=== PATIENT | female | born 1990 | race Caucasian/White ===

== ENCOUNTER 2017-11-08 07:23 | Outpatient (CLI) ==
--- NOTE | 2017-11-08 10:14 | US ---
EXAM: Transvaginal pelvic ultrasound. History: Vaginal bleeding. Technique: Multiple sonographic images through the pelvis were obtained. Color duplex Doppler was u sed to interrogate vascular flow. Findings: The uterus measures 8.5 cm x 4.7 cm x 4.2 cm. Endometrium measures 1.2 cm in thickness. Multiple Na bothian cysts are seen within the cervix with the largest measuring 0.6 cm. No fluid in the cul-de-sac. The ovaries were not seen well transvaginally. Transabdominally the ovaries were identified and appea red normal in size and demonstrated blood flow. Impression: Multiple cervical Nabothian cysts. The endometrium is mildly thickened and could be due to phase in cycle versus hyperplasia or polyp. Follow-up recommended.
== END 2017-11-08 07:24 | disposition home or self-care (01) ==
LOC: RAD 07:23
PROVIDERS: ATTEND Nurse Practitioner Family
DX: N92.1 Excessive and frequent menstruation with irregular cycle (principal)
CPT/HCPCS: 36415; 80053; 82672; 83001; 83002; 84439; 84443; 84481; 85025

== ENCOUNTER 2018-01-11 16:08 | Outpatient (CLI) | END 2018-01-11 16:09 | disposition home or self-care (01) | LOC: FCC-LAB 16:08 | PROVIDERS: ATTEND Nurse Practitioner Family | DX: E03.9 Hypothyroidism, unspecified (principal); E66.9 Obesity, unspecified | CPT/HCPCS: 36415; 80053; 84439; 84443; 85025 ==

== ENCOUNTER 2018-06-16 21:31 | Emergency (ER) | payer OTHER ==
[2018-06-16 21:35] VITALS: BP 138/86; TEMP 98.3; BMI 46.2
--- NOTE | 2018-06-16 22:03 | ED.PDOC ---
General ED Provider: Dr. SHELBY SWEENEY-ER Chief Complaint: Headache Stated Complaint: we had sex and then her head starting hurting and she couldnt talk Time Seen by Physician: 21:35 Mode of Arrival: Walk-In Information Source: Patient, Family Exam Limitations: No limitations Primary Care Provider: WIL STEPHENSON Nursing and Triage Documentation Reviewed and Agree: Yes Does patient meet sepsis criteria?: No System Inflammatory Response Syndrome: Not Applicable Sepsis Protocol: For patient's 13 years and over: Temp is 96.8 and below OR 101 and greater Pulse >90 BPM Resp >20/minute Acutely Altered Mental Status Are patient's symptoms suggestive of a new infection, such as: -Pneumonia -Skin, Soft Tissue -Endocarditis -UTI -Bone, Joint Infection -Implantable Device -Acute Abdominal Infection -Wound Infection -Meningitis -Blood Stream Catheter Infection -Unknown Neurological Complaint Exam - Headache Complaint/Exam Onset: Sudden Duration: one hour Symptoms Are: Still present Timing: Constant Worst Headache Ever: No Initial Severity: Mild Current Severity: Mild Location: Diffuse Character: Reports: Dull Aggravating: Reports: None Alleviating: Reports: None Associated Signs and Symptoms: Denies: Dizziness, Seizure, Nausea, Vomiting, Sinus pressure, Fever, Neck pain, Neck stiffness, Decreased LOC, Visual changes Related Surgical History: Reports: None Meningitis Risk Factors: Reports: None SDH Risk Factors: Reports: None Temporal Arteritis Risk Factors: Reports: Female, Normal Head CT Within Last 12 Months: No Fundoscopic Exam: Present: Normal Findings Papilledema Present: No Temporal Artery Tenderness: Present: None Sinus Tenderness: Present: None TMJ Tenderness: Present: None Glascow Coma Scale (see protocol): 15 Meningeal Signs Positive: No Pain on Passive Flexion-Positive Kernig's: No ROM Limited In: No Limitiations Focal Weakness: Present: None Focal Sensory Loss: Present: None Gait: Normal Nystagmus Present: No Gag Reflex Present: Yes [id number]: Normal Findings Romberg Test Positive: No Babinski Sign: Negative Right, Negative Left Heel to Toe Normal: Yes Differential Diagnoses: CVA, TIA, Migraine (complex migraine), Other Review of Systems - Review Of Systems Constitutional: Reports: No symptoms Eyes: Reports: No symptoms Ears, Nose, Mouth, Throat: Reports: No symptoms Respiratory: Reports: No symptoms Cardiac: Reports: No symptoms GI: Reports: No symptoms : Reports: No symptoms Musculoskeletal: Reports: No symptoms Skin: Reports: No symptoms Neurological: Reports: Headache, Other (aphasia) Endocrine: Reports: No symptoms Hematologic/Lymphatic: Reports: No symptoms All Other Systems: Reviewed and Negative Past Medical History - Past Medical History Previously Healthy: No Endocrine: Reports: Unknown Cardiovascular: Reports: Unknown Respiratory: Reports: Unknown Hematological: Reports: Unknown Gastrointestinal: Reports: Unknown Genitourinary: Reports: Unknown Neuro/Psych: Reports: Unknown Musculoskeletal: Reports: Unknown Cancer: Reports: Unknown Last Menstrual Period: 2 weeks - Surgical History General Surgical History: Reports: Unknown - Family History Family History: Reports: Unknown - Social History Smoking Status: Never smoker Hx Substance Use: No Alcohol Screening: Occasionally Lives: With family - Immunizations Tetanus Shot up to Date: Yes Physical Exam - Physical Exam Appearance: Well-appearing, No pain distress, Well-nourished Eyes: YAKELIN, EOMI, Conjunctiva clear ENT: Ears normal, Nose normal, Oropharynx normal Neck: Supple Respiratory: Airway patent, Breath sounds clear, Breath sounds equal, Respirations nonlabored Cardiovascular: RRR, Pulses normal, No rub, No murmur GI/: Soft, Nontender, No masses, Bowel sounds normal, No Organomegaly Musculoskeletal: Normal strength, ROM intact, No edema, No calf tenderness Skin: Warm, Dry, Normal color Neurological: Sensation intact, Motor intact, Reflexes intact, Cranial nerves intact, Alert, Oriented Psychiatric: Affect appropriate, Mood appropriate Interpretation - EKG Interpretation Time of EKG #1: 22:04 Rate: Normal Rhythm: Sinus Ectopy: None Dalbo: NL ST Segment: Normal Interpretation: nsr Re-Evaluation - Re-Evaluation Time of Re-Evaluation: 22:54 Status: Improved (now speaking in sentences--angel improved) Vital Signs Stable: Yes Pain Level: 2 Appearance: NAD Lungs: Clear Skin: Warm and Dry Neuro: Alert and Oriented X3 CV: RRR Critical Care Note - Critical Care Note Total Time (mins): 0 Course - Course Hematology/Chemistry: 06/16/18 21:55 06/16/18 21:55 Orders, Labs, Meds: Lab Review 06/16/18 06/16/18 06/16/18 21:50 21:50 21:50 WBC RBC Hgb Hct MCV MCH MCHC RDW Coeff of Eliseo Plt Count Immature Gran % (Auto) Neut % (Auto) Lymph % (Auto) Pepin % (Auto) Eos % (Auto) Baso % (Auto) Immature Gran # (Auto) Neut # (Auto) Lymph # (Auto) Pep[place] # (Auto) Eos # (Auto) Baso # (Auto) Sodium Potassium Chloride Carbon Dioxide Anion Gap BUN Creatinine Estimated GFR (MDRD) BUN/Creatinine Ratio Glucose Calcium Total Bilirubin AST ALT Alkaline Phosphatase Total Protein Albumin Globulin Albumin/Globulin Ratio Free T4 Urine Color Yellow Urine Clarity Cloudy Urine pH 6.0 Ur Specific [place] >=1.030 Urine Protein Trace Urine Glucose (UA) Negative Urine Ketones Negative Urine Blood Negative Urine Nitrite Negative Urine Bilirubin 1+ Urine Urobilinogen 0.2 Ur Leukocyte Esterase Negative Urine Microscopic WBC 0-2 Ur Squamous Epith Cells 0-2 Urine Bacteria Trace Hyaline Casts 0-2 Urine Mucus 1+ Urine Sperm Trace Urine Test Negative Urine Opiates Screen Negative Ur Oxycodone Screen Negative Urine Methadone Screen Negative Ur Propoxyphene Screen Negative Ur Barbiturates Screen Negative U Tricyclic Antidepress Negative Ur Phencyclidine Scrn Negative Ur Amphetamine Screen Negative U Methamphetamines Scrn Negative U Benzodiazepines Scrn Negative Urine Cocaine Screen Negative U Cannabinoids Screen Negative Plasma/Serum Alcohol 06/16/18 06/16/18 06/16/18 21:55 21:55 21:55 WBC 11.64 H RBC 4.96 Hgb 14.2 Hct 42.6 MCV 85.9 MCH 28.6 MCHC 33.3 RDW Coeff of Eliseo 12.8 Plt Count 361 Immature Gran % (Auto) 0.3 Neut % (Auto) 74.6 Lymph % (Auto) 21.6 Pepin % (Auto) 2.8 Eos % (Auto) 0.3 Baso % (Auto) 0.4 Immature Gran # (Auto) 0.0 Neut # (Auto) 8.7 H Lymph # (Auto) 2.5 Pepin # (Auto) 0.3 L Eos # (Auto) 0.0 Baso # (Auto) 0.1 Sodium 143.7 Potassium 4.01 Chloride 108.0 H Carbon Dioxide 23.0 Anion Gap 16.71 BUN 8.1 Creatinine 1.00 Estimated GFR (MDRD) 66.00 BUN/Creatinine Ratio 8.10 Glucose 101.8 Calcium 9.29 Total Bilirubin 0.44 AST 23.7 ALT 22.8 Alkaline Phosphatase 84.5 Total Protein 7.96 Albumin 4.57 Globulin 3.39 Albumin/Globulin Ratio 1.34 Free T4 1.24 Urine Color Urine Clarity Urine pH Ur Specific [place] Urine Protein Urine Glucose (UA) Urine Ketones Urine Blood Urine Nitrite Urine Bilirubin Urine Urobilinogen Ur Leukocyte Esterase Urine Microscopic WBC Ur Squamous Epith Cells Urine Bacteria Hyaline Casts Urine Mucus Urine Sperm Urine Test Urine Opiates Screen Ur Oxycodone Screen Urine Methadone Screen Ur Propoxyphene Screen Ur Barbiturates Screen U Tricyclic Antidepress Ur Phencyclidine Scrn Ur Amphetamine Screen U Methamphetamines Scrn U Benzodiazepines Scrn Urine Cocaine Screen U Cannabinoids Screen Plasma/Serum Alcohol < 10.0 Orders Category Date Time Status EKG-(ED ONLY) Stat CARDIO 06/16/18 21:48 Completed ACCUCHECK (ED) [ED ACCUCHECK ASSESSMENT] .ONCE EMERGENCY 06/16/18 22:11 Active ED CONSULTING NURSE APPLIED .ONCE EMERGENCY 06/16/18 21:46 Active IV [ED IV/MEDIPORT/POWERPORT] .ONCE EMERGENCY 06/16/18 22:14 Active OXYGEN [ED APPLY O2] .ONCE EMERGENCY 06/16/18 22:11 Active BLOOD ALCOHOL Stat LAB 06/16/18 21:55 Completed CBC W/ AUTO DIFF Stat LAB 06/16/18 21:55 Completed CMP [COMPREHENSIVE METABOLIC PANEL] Stat LAB 06/16/18 21:55 Completed DRUG SCREEN, URINE, RAPID Stat LAB 06/16/18 21:50 Completed FREE T4 (FREE THYROXINE) Stat LAB 06/16/18 21:55 Completed TSH [THYROID STIMULATING HORMONE] Stat LAB 06/16/18 21:55 Received UA [URINALYSIS C & S IF INDICATED] Stat LAB 06/16/18 21:50 Completed URINE Stat LAB 06/16/18 21:50 Completed 0.9 % Sodium Chloride [Saline Flush] MEDS 06/16/18 22:14 Ordered 1 syr IVF PRN PRN Ketorolac Tromethamine [Toradol] MEDS 06/16/18 22:31 Discontinued 30 mg IVP ONCE STA Ondansetron HCl/Pf [Zofran 4 mg/2 ml] MEDS 06/16/18 22:31 Discontinued 4 mg IVP ONCE STA CT HEAD W/O CONTRAST Stat RADS 06/16/18 21:43 Completed Medications Generic Name Dose Route Start Last Admin Trade Name Freq PRN Reason Stop Dose Admin Sodium Chloride 1 syr 06/16/18 22:14 06/16/18 22:36 Saline Flush IVF 1 syr PRN PRN Administration To flush IV Discontinued Medications Generic Name Dose Route Start Last Admin Trade Name Sandy PRN Reason Stop Dose Admin Ketorolac Tromethamine 30 mg 06/16/18 22:31 06/16/18 22:35 Toradol IVP 06/16/18 22:32 30 mg ONCE STA Administration Ondansetron HCl 4 mg 06/16/18 22:31 06/16/18 22:35 Zofran 4 Mg/2 Ml IVP 06/16/18 22:32 4 mg ONCE STA Administration Vital Signs: Temp Pulse Resp BP Pulse Ox 06/16/18 22:16 81 22 99 06/16/18 21:31 98.3 F 89 20 138/86 98 Departure - Departure Time of Disposition: 22:55 Disposition: TSF SHORT-TRM HOSP Discharge Problem: Headache Condition: Good Pt referred to PMD for follow-up: Yes IPMP verified?: No Allergies/Adverse Reactions: Allergies cefaclor [From Ceclor] Allergy (Severe, Unverified 07/13/17 13:36) Patient unsure Patient to notify drugstore Home Medications: Ambulatory Orders Metformin HCl 1,000 mg PO BID 06/16/18 Transfer Form Completed: Yes Disposition Discussed With: Patient, Family
[2018-06-16 22:04] LABS: URINE PREGNANCY TEST NEGATIVE (NEGATIVE)
[2018-06-16] MEDS ORDERED: ZOFRAN 4 MG/2 ML IVP STA (22:31)
[2018-06-16] MEDS ORDERED: TORADOL IVP STA (22:31)
--- NOTE | 2018-06-16 22:31 | CT ---
EXAM: CT head without contrast 06/16/2018. Sagittal and coronal reformatted images obtained HISTORY: Headache. Aphasia COMPARISON: None. FINDINGS: There is no evidence of intracranial hemorrhage. The midline is maintained. There is no h ydrocephalus. No cerebellar tonsillar ectopia. Evaluation of the calvarium shows no fracture. Th e mastoid air cells are normally pneumatized. IMPRESSION: No acute intracranial abnormality.
== END 2018-06-16 23:40 | disposition short-term general hospital (02) ==
LOC: ED 21:31
DX: R51 Headache (principal)
CPT/HCPCS: 36415; 80053; 80306; 80307; 81001; 81025; 82962; 84439; 84443; 85025; 93005; 93010; 96374; 96375; 99285

== ENCOUNTER 2018-06-16 23:40 | Outpatient (CLI) ==
[2018-06-16 21:35] VITALS: BMI 46.2
== END 2018-06-16 23:41 | disposition home or self-care (01) ==
LOC: AMBL 23:40
PROVIDERS: ATTEND Family Medicine
DX: G43.909 Migraine, unspecified, not intractable, without status migrainosus (principal)

== ENCOUNTER 2018-08-01 10:58 | Emergency (ER) ==
[2018-08-01 11:06] VITALS: BP 150/107; TEMP 99.5; BMI 45.3
--- NOTE | 2018-08-01 12:01 | ED.PDOC ---
General ED Provider: Dr. SHELBY CHA Chief Complaint: Behavioral Complaint Stated Complaint: Depressed. Suicidal thought. Marital problems.Just discovered her of 10 yrs has been having an affair. Also upset over being unable to Conceive. Has PCOS and takes Metformin. 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 Time Seen by Physician: 11:45 Mode of Arrival: Wheelchair Information Source: Patient Exam Limitations: No limitations Primary Care Provider: TAYLOR MORATAYA Nursing and Triage Documentation Reviewed and Agree: Yes Does patient meet sepsis criteria?: No System Inflammatory Response Syndrome: Not Applicable Sepsis Protocol: For patient's 13 years and over: Temp is 96.8 and below OR 101 and greater Pulse >90 BPM Resp >20/minute Acutely Altered Mental Status Are patient's symptoms suggestive of a new infection, such as: -Pneumonia -Skin, Soft Tissue -Endocarditis -UTI -Bone, Joint Infection -Implantable Device -Acute Abdominal Infection -Wound Infection -Meningitis -Blood Stream Catheter Infection -Unknown Psychological Complaint Exam - Psychiatric Complaint/Exam Patient Complains Of: Present: Depression, Suicidal thoughts Onset/Duration: Today Symptoms Are: Still present Timing: Constant Episodes Lasting: Hours Initial Severity: Severe Current Severity: Severe Character: Present: Depressed, Fearful, Anxious, Angry, Frustrated Aggravating: Reports: Recent stress Associated Signs And Symptoms: Reports: Hostile, Confused, Appetite change Related History: Reports: Suicidal thoughts. Denies: Suicidal plan, Suicidal gestures Social Withdrawal Present: No Social Isolation Present: No Patient Uncooperative For Exam: No Mood: Present: Anxious Appearance: Present: Clean Thought Process: Present: Logical Insight: Present: Good Memory: Intact Judgement: Normal Danger To Others: No Review of Systems - Review Of Systems Constitutional: Reports: No symptoms Eyes: Reports: No symptoms Ears, Nose, Mouth, Throat: Reports: No symptoms Respiratory: Reports: No symptoms Cardiac: Reports: No symptoms GI: Reports: No symptoms : Reports: No symptoms Musculoskeletal: Reports: No symptoms Skin: Reports: No symptoms Neurological: Reports: No symptoms Endocrine: Reports: No symptoms Hematologic/Lymphatic: Reports: No symptoms All Other Systems: Reviewed and Negative (Depression -situational) Past Medical History - Past Medical History Previously Healthy: Yes Endocrine: Reports: Unknown Cardiovascular: Reports: Unknown Respiratory: Reports: Unknown Hematological: Reports: Unknown Gastrointestinal: Reports: Unknown Genitourinary: Reports: Unknown Neuro/Psych: Reports: Unknown Musculoskeletal: Reports: Unknown Cancer: Reports: Unknown Last Menstrual Period: now - Surgical History General Surgical History: Reports: Unknown - Family History Family History: Reports: Unknown - Social History Smoking Status: Never smoker Hx Substance Use: No Alcohol Screening: Occasionally Physical Exam - Physical Exam Appearance: Well-appearing, No pain distress, Well-nourished, Obese Eyes: YAKELIN, EOMI, Conjunctiva clear ENT: Ears normal, Nose normal, Oropharynx normal Respiratory: Airway patent, Breath sounds clear, Breath sounds equal, Respirations nonlabored Cardiovascular: RRR, Pulses normal, No rub, No murmur GI/: Soft, Nontender, No masses, Bowel sounds normal, No Organomegaly Musculoskeletal: Normal strength, ROM intact, No edema, No calf tenderness Skin: Warm, Dry, Normal color Neurological: Sensation intact, Motor intact, Reflexes intact, Cranial nerves intact, Alert, Oriented Psychiatric: Affect appropriate, Mood appropriate, Anxious, Depressed Re-Evaluation - Re-Evaluation Time of Re-Evaluation: 14:00 Status: Improved Vital Signs Stable: Yes Appearance: NAD Lungs: Clear Skin: Warm and Dry Neuro: Alert and Oriented X3 CV: RRR Critical Care Note - Critical Care Note Total Time (mins): 0 Course - Course Hematology/Chemistry: 08/01/18 12:00 08/01/18 12:00 Orders, Labs, Meds: Lab Review 08/01/18 08/01/18 08/01/18 11:55 12:00 12:00 WBC 14.67 H RBC 4.87 Hgb 13.9 Hct 41.2 MCV 84.6 MCH 28.5 MCHC 33.7 RDW Coeff of Eliseo 12.5 Plt Count 316 Immature Gran % (Auto) 0.5 Neut % (Auto) 82.7 Lymph % (Auto) 13.4 Wells % (Auto) 2.9 Eos % (Auto) 0.2 Baso % (Auto) 0.3 Immature Gran # (Auto) 0.1 Neut # (Auto) 12.1 H Lymph # (Auto) 2.0 [place] # (Auto) 0.4 Eos # (Auto) 0.0 Baso # (Auto) 0.1 Sodium 138.9 Potassium 3.80 Chloride 104.3 Carbon Dioxide 26.7 Anion Gap 11.70 BUN 10.5 Creatinine 1.07 Estimated GFR (MDRD) 61.00 BUN/Creatinine Ratio 9.81 Glucose 110.2 H Calcium 9.58 Total Bilirubin 0.29 AST 40.8 H ALT 30.4 Alkaline Phosphatase 84.4 Total Protein 8.43 H Albumin 4.70 Globulin 3.73 Albumin/Globulin Ratio 1.26 TSH 4.070 Urine Color Dark Urine Clarity Cloudy Urine pH 5.5 Ur Specific [place] >=1.030 Urine Protein 1+ Urine Glucose (UA) Negative Urine Ketones Negative Urine Blood 3+ Urine Nitrite Negative Urine Bilirubin 1+ Urine Urobilinogen 0.2 Ur Leukocyte Esterase Negative Urine Microscopic RBC 50-100 Ur Squamous Epith Cells 20-30 Hyaline Casts 2-5 Salicylate Level mg/dL < 1.00 Urine Opiates Screen Ur Oxycodone Screen Urine Methadone Screen Ur Propoxyphene Screen Acetaminophen < 10.0 L Ur Barbiturates Screen U Tricyclic Antidepress Ur Phencyclidine Scrn Ur Amphetamine Screen U Methamphetamines Scrn U Benzodiazepines Scrn Urine Cocaine Screen U Cannabinoids Screen Plasma/Serum Alcohol < 10.0 08/01/18 12:00 WBC RBC Hgb Hct MCV MCH MCHC RDW Coeff of Eliseo Plt Count Immature Gran % (Auto) Neut % (Auto) Lymph % (Auto) [place] % (Auto) Eos % (Auto) Baso % (Auto) Immature Gran # (Auto) Neut # (Auto) Lymph # (Auto) [place] # (Auto) Eos # (Auto) Baso # (Auto) Sodium Potassium Chloride Carbon Dioxide Anion Gap BUN Creatinine Estimated GFR (MDRD) BUN/Creatinine Ratio Glucose Calcium Total Bilirubin AST ALT Alkaline Phosphatase Total Protein Albumin Globulin Albumin/Globulin Ratio TSH Urine Color Urine Clarity Urine pH Ur Specific [place] Urine Protein Urine Glucose (UA) Urine Ketones Urine Blood Urine Nitrite Urine Bilirubin Urine Urobilinogen Ur Leukocyte Esterase Urine Microscopic RBC Ur Squamous Epith Cells Hyaline Casts Salicylate Level mg/dL Urine Opiates Screen Negative Ur Oxycodone Screen Negative Urine Methadone Screen Negative Ur Propoxyphene Screen Negative Acetaminophen Ur Barbiturates Screen Negative U Tricyclic Antidepress Negative Ur Phencyclidine Scrn Negative Ur Amphetamine Screen Negative U Methamphetamines Scrn Negative U Benzodiazepines Scrn Negative Urine Cocaine Screen Negative U Cannabinoids Screen Negative Plasma/Serum Alcohol Orders Category Date Time Status EKG-(ED ONLY) Stat CARDIO 08/01/18 11:48 Completed ED BL[employer] CONTROL CLERK APPLIED ONCE EMERGENCY 08/01/18 11:48 Active ACETAMINOPHEN Stat LAB 08/01/18 12:00 Completed BLOOD ALCOHOL Stat LAB 08/01/18 12:00 Completed CBC W/ AUTO DIFF Stat LAB 08/01/18 12:00 Completed COMPREHENSIVE METABOLIC PANEL Stat LAB 08/01/18 12:00 Completed DRUG SCREEN, URINE, RAPID Stat LAB 08/01/18 12:00 Completed SALICYLATE Stat LAB 08/01/18 12:00 Completed THYROID STIMULATING HORMONE Stat LAB 08/01/18 12:00 Completed URINALYSIS C & S IF INDICATED Stat LAB 08/01/18 11:55 Completed Vital Signs: Temp Pulse Resp BP Pulse Ox 08/01/18 10:58 99.5 F 100 H 20 150/107 H 97 Departure - Departure Time of Disposition: 14:00 Disposition: HOME SELF-CARE Discharge Problem: Situational depression Instructions: Depression (ED), Suicide Prevention (ED) Condition: Good Pt referred to PMD for follow-up: Yes (Dr Morataya 1 week) IPMP verified?: No Additional Instructions: Seed follow up care with Mental Health and Dr Morataya Counseling If beginning to feel worse, call Mental heatlh or return to ER Allergies/Adverse Reactions: Allergies cefaclor [From Ceclor] Allergy (Severe, Verified 08/01/18 11:07) Patient unsure Patient to notify drugstore Home Medications: Ambulatory Orders Metformin HCl 1,000 mg PO BID 06/16/18 Progesterone, Micronized [Progesterone] 100 mg PO DAILY 08/01/18 Disposition Discussed With: Patient
== END 2018-08-01 14:53 | disposition home or self-care (01) ==
LOC: ED 10:58
DX: F43.21 Adjustment disorder with depressed mood (principal)
CPT/HCPCS: 36415; 80053; 80306; 80307; 81001; 84443; 85025; 93005; 93010; 99283